=== PATIENT | male | born 1930 | race Caucasian/White ===

== ENCOUNTER 2020-09-17 12:26 | Inpatient (IN) ==
[2020-09-17] MEDS ORDERED: Ondansetron 4 MG/2 ML VIAL ONE (12:50)
[2020-09-17] MEDS: 0.9 % Sodium Chloride 1,000 ML IVC SCH ×3 (13:04→21:46)
[2020-09-17] MEDS: Norepinephrine 4 MG/254 ML IV.SOLN IVC SCH ×2 (13:04→21:25)
[2020-09-17] MEDS ORDERED: Acetaminophen 650 MG RECTAL SUPP RC ONE (13:05)
[2020-09-17] MEDS ORDERED: 0.9 % Sodium Chloride 1,000 ML IVC ONE ×3 (13:17→15:18)
[2020-09-17] MEDS ORDERED: Piperacillin/Tazobactam 3.375 GM in Water for inj. (sterile) 20 ML IVP ONE (13:18)
[2020-09-17] MEDS ORDERED: Piperacillin/Tazobactam 3.375 GM in 0.9 % Sodium Chloride Mini Bag 100 ML IVPB ONE (13:19)
[2020-09-17 13:28] LABS: INR 1.3; Prothrombin Time 14.4 Seconds (9.4-12.1)
[2020-09-17 13:30] LABS: Activated Partial Thrombo Time 29.5 Seconds (26.0-36.0)
[2020-09-17 13:48] LABS: Albumin 3.1 g/dL (3.5-5.7); Albumin/Globulin Ratio 1.3 (1.1-2.2); Bilirubin,Direct 0.2 mg/dL (0.0-0.2); Bilirubin,Indirect 0.5 mg/dL (0.0-1.0); Bilirubin,Total 0.7 mg/dL (0.3-1.0); Calcium 8.3 mg/dL (8.6-10.3); Globulin 2.4 g/dL (2.4-3.5); Magnesium 1.7 mg/dL (1.6-2.6); Phosphorous 2.1 mg/dL (2.7-4.5); Potassium 3.6 mEq/L (3.5-5.1); Total Protein 5.5 g/dL (6.4-8.9); Troponin I 0.03 ng/mL (< 0.04)
[2020-09-17 13:58] LABS: Thyroid Stimulating Hormone 20.674 mcIU/mL (0.340-5.600)
[2020-09-17 14:08] LABS: Bilirubin,Urine Negative (Negative); Blood,Urine Large (Negative); Clarity,Urine Turbid (Clear); Color,Urine Light-Red (Yellow); Glucose,Urine (UA) Normal (Normal); Ketones,Urine Negative (Negative); Leukocyte Esterase,Urine Large (Negative); Nitrite,Urine Negative (Negative); PH,Urine 6.5 pH Units (5.0-8.0); Protein,Urine 100 mg/dL (Neg-Trace); Specific Gravity,Urine 1.006 (1.010-1.025); Urobilinogen,Urine Normal (Normal)
[2020-09-17 14:23] LABS: Amorphous Sediment,Urine Many per hpf (None-Few); Bacteria,Urine Many per hpf (None-Few); RBC,Urine TNTC per hpf (0-3); Renal Epithelial Cells,Urine Few per hpf (None-Few); WBC,Urine TNTC per hpf (0-3)
[2020-09-17] MEDS ORDERED: Metoclopramide 10 MG/2 ML VIAL IVP ONE (14:36)
[2020-09-17 14:45] LABS: Hematocrit 28.3 % (37.5-50.1); Mean Corpuscular Volume 95.6 fL (83.0-100.0); Red Blood Count 2.96 M/mcL (4.19-5.50)
[2020-09-17 14:47] LABS: Hemoglobin 8.8 g/dL (12.9-16.9); Immature Platelets 3.4 % (1.1-6.1); Mean Corpuscular HGB Conc 31.1 g/dL (31.6-35.5); Mean Corpuscular Hemoglobin 29.7 pg (28.0-33.3); Mean Platelet Volume 9.9 fL (9.4-12.4); Platelet Count 100 K/mcL (140-400); Red Cell Distribution Width 13.4 % (11.5-14.5); White Blood Count 11.8 K/mcL (4.3-11.1)
[2020-09-17 15:11] LABS: Neutrophils # 11.8 K/mcL (1.6-8.9); Toxic Vacuolation Present (Not Present)
[2020-09-17 15:12] LABS: Anisocytosis 1+ (Not Present); Large Platelets Present (Not Present); Toxic Granulation Present (Not Present)
[2020-09-17 15:13] LABS: Platelet Estimate Slight Decrease (Normal)
[2020-09-17] MEDS ORDERED: Naloxone 0.4 MG/ML INJ IVP PRN (18:34)
[2020-09-17] MEDS ORDERED: Vancomycin (wt based) 1,000 MG VIAL IVPB SCH (19:00)
[2020-09-17] MEDS: Vasopressin 40 UNIT in D5% in Water 100 ML IVC SCH (20:09)
[2020-09-17] MEDS: Acetaminophen 325 MG TABLET PO PRN (20:09)
[2020-09-17] MEDS: MetroNIDAZOLE 500 MG/100 ML 500 MG/100 ML BAG IVPB SCH (21:07)
[2020-09-17] MEDS ORDERED: Albumin 25% 25gram/100mL 25 GM/100 ML IV.SOLN IVPB ONE (21:28)
[2020-09-17] MEDS ORDERED: Cefepime HCl 2,000 MG in Water for inj. (sterile) 20 ML IVP SCH (22:00)
[2020-09-17] MEDS: Hydrocortisone Sodium Succ 100 MG/2 ML VIAL IVP SCH (23:33)
[2020-09-17] MEDS ORDERED: Norepinephrine 4 MG/254 ML IV.SOLN IVC SCH (23:45)
[2020-09-17] MEDS ORDERED: D5% in Water 1,000 ML IVC SCH (23:45)
[2020-09-17] MEDS: Norepinephrine 8 MG in 0.9 % Sodium Chloride 250 ML IVC SCH (23:54)
[2020-09-18] MEDS: Phenylephrine 10 MG in 0.9 % Sodium Chloride 250 ML IVC SCH ×2 (02:03→12:55)
[2020-09-18 04:09] LABS: Hemoglobin 7.7 g/dL (12.9-16.9)
[2020-09-18 04:11] LABS: Hematocrit 24.2 % (37.5-50.1); Mean Corpuscular HGB Conc 31.8 g/dL (31.6-35.5); Mean Corpuscular Hemoglobin 30.4 pg (28.0-33.3); Mean Corpuscular Volume 95.7 fL (83.0-100.0); Mean Platelet Volume 10.9 fL (9.4-12.4); Red Blood Count 2.53 M/mcL (4.19-5.50); Red Cell Distribution Width 13.8 % (11.5-14.5)
[2020-09-18 04:16] LABS: Platelet Count 77 K/mcL (140-400)
[2020-09-18 04:21] LABS: Calcium 7.2 mg/dL (8.6-10.3); Magnesium 1.3 mg/dL (1.6-2.6); Phosphorous 2.9 mg/dL (2.7-4.5); Potassium 3.8 mEq/L (3.5-5.1)
[2020-09-18] MEDS: Norepinephrine 8 MG in 0.9 % Sodium Chloride 250 ML IVC SCH ×3 (04:30→17:26)
[2020-09-18] MEDS: *HR* Heparin 5,000 UNIT/ML VIAL SQ SCH ×2 (05:16→17:30)
[2020-09-18] MEDS: Hydrocortisone Sodium Succ 100 MG/2 ML VIAL IVP SCH ×4 (05:16→23:27)
[2020-09-18] MEDS: MetroNIDAZOLE 500 MG/100 ML 500 MG/100 ML BAG IVPB SCH ×3 (05:16→19:48)
[2020-09-18 05:39] LABS: Lymphocytes # 1.2 K/mcL (0.6-4.6); Neutrophils # 29.1 K/mcL (1.6-8.9); Platelet Estimate Decreased (Normal); Toxic Granulation Present (Not Present); Toxic Vacuolation Present (Not Present)
[2020-09-18] MEDS: Potassium Chloride 40 MEQ/200 ML BAG IVPB PRN (06:15)
[2020-09-18] MEDS: 0.9 % Sodium Chloride 1,000 ML IVC SCH (08:14)
[2020-09-18] MEDS: Acetaminophen 325 MG TABLET PO PRN (08:25)
[2020-09-18 08:37] LABS: Acinetobacter baumannii by PCR Not Detected (Not Detect); Candida albicans by PCR Not Detected (Not Detect); Candida glabrata by PCR Not Detected (Not Detect); Candida krusei by PCR Not Detected (Not Detect); Candida parapsilosis by PCR Not Detected (Not Detect); Candida tropicalis by PCR Not Detected (Not Detect); Enterobacter cloacae Cmplx PCR Not Detected (Not Detect); Enterobacteriaceae by PCR Not Detected (Not Detect); Enterococcus by PCR Not Detected (Not Detect); Escherichia coli by PCR Not Detected (Not Detect); Klebsiella oxytoca by PCR Not Detected (Not Detect); Klebsiella pneumoniae by PCR Not Detected (Not Detect); Proteus by PCR Not Detected (Not Detect); Pseudomonas aeruginosa by PCR DETECTED (Not Detect); Serratia marcescens by PCR Not Detected (Not Detect); Staphylococcus aureus by PCR Not Detected (Not Detect); Staphylococcus by PCR Not Detected (Not Detect); Streptococcus agalactiae(B)PCR Not Detected (Not Detect); Streptococcus by PCR Not Detected (Not Detect); Streptococcus pneumoniae PCR Not Detected (Not Detect); Streptococcus pyogenes (A) PCR Not Detected (Not Detect); blaKPC Carbapenem-Resist Gene Not Detected (Not Detect); mecA Methicillin-Resist Gene Not Detected (Not Detect); vanA/B Vancomycin-Resist Genes Not Detected (Not Detect)
[2020-09-18] MEDS ORDERED: 0.9 % Sodium Chloride 1,000 ML IVC ONE (13:23)
[2020-09-18] MEDS ORDERED: Sodium Bicarbonate 150 MEQ in D5% in Water 1,000 ML IVC SCH (14:15)
[2020-09-18] MEDS: Albumin Human 5% 12.5 GM/250 ML IV.SOLN IVPB SCH ×2 (14:19→17:27)
[2020-09-18] MEDS: Cefepime HCl 1,000 MG in Water for inj. (sterile) 10 ML IVP SCH ×2 (14:20→23:26)
[2020-09-18] MEDS: Vasopressin 40 UNIT in D5% in Water 100 ML IVC SCH ×2 (15:42→19:40)
[2020-09-18] MEDS ORDERED: Albumin Human 5% 12.5 GM/250 ML IV.SOLN ONE (17:21)
[2020-09-18] MEDS: Phenylephrine 50 MG in 0.9 % Sodium Chloride 250 ML IVC SCH (19:40)
[2020-09-18] MEDS ORDERED: Hydrocortisone Sodium Succ 100 MG/2 ML VIAL IVP SCH (22:00)
[2020-09-19] MEDS: Vasopressin 40 UNIT in D5% in Water 100 ML IVC SCH ×2 (00:44→19:26)
[2020-09-19] MEDS: Norepinephrine 8 MG in 0.9 % Sodium Chloride 250 ML IVC SCH (01:51)
[2020-09-19 04:12] LABS: VBG Ionized Calcium 0.99 mmol/L (1.15-1.35)
[2020-09-19 04:28] LABS: Hemoglobin 6.7 g/dL (12.9-16.9)
[2020-09-19 04:30] LABS: Hematocrit 20.1 % (37.5-50.1); Mean Corpuscular HGB Conc 33.3 g/dL (31.6-35.5); Mean Corpuscular Hemoglobin 30.3 pg (28.0-33.3); Mean Platelet Volume 11.3 fL (9.4-12.4); Red Blood Count 2.21 M/mcL (4.19-5.50); White Blood Count 23.1 K/mcL (4.3-11.1)
[2020-09-19 04:54] LABS: Platelet Count 47 K/mcL (140-400)
[2020-09-19 04:59] LABS: Ferritin 1078 ng/mL (20-250); Iron < 10 mcg/dL (65-175); Transferrin 92 mg/dL (203-362)
[2020-09-19 05:04] LABS: Folate 4.8 ng/mL (3.0-16.0)
[2020-09-19 05:06] LABS: Calcium 6.8 mg/dL (8.6-10.3); Magnesium 1.8 mg/dL (1.6-2.6); Phosphorous 3.2 mg/dL (2.7-4.5); Potassium 4.6 mEq/L (3.5-5.1)
[2020-09-19 05:12] LABS: Vitamin B12 > 1500 pg/mL (250-1100)
[2020-09-19] MEDS: MetroNIDAZOLE 500 MG/100 ML 500 MG/100 ML BAG IVPB SCH ×3 (05:15→20:08)
[2020-09-19] MEDS: Hydrocortisone Sodium Succ 100 MG/2 ML VIAL IVP SCH ×4 (05:16→23:02)
[2020-09-19] MEDS: *HR* Heparin 5,000 UNIT/ML VIAL SQ SCH (05:16)
[2020-09-19 05:45] LABS: Monocytes # 1.9 K/mcL (0.0-1.3)
[2020-09-19 05:46] LABS: Large Platelets Present (Not Present); Platelet Estimate Marked Decrease (Normal); Toxic Vacuolation Present (Not Present)
[2020-09-19] MEDS: Calcium Gluconate 1gm/50mL 1 GM/50 ML BAG IVPB PRN ×2 (05:50→14:42)
[2020-09-19 06:07] LABS: Red Cell Distribution Width 14.2 % (11.5-14.5)
[2020-09-19 06:09] LABS: Hematocrit 21.4 % (37.5-50.1); Hemoglobin 6.9 g/dL (12.9-16.9); Immature Platelets 7.3 % (1.1-6.1); Mean Corpuscular HGB Conc 32.2 g/dL (31.6-35.5); Mean Corpuscular Hemoglobin 29.2 pg (28.0-33.3); Mean Corpuscular Volume 90.7 fL (83.0-100.0); Red Blood Count 2.36 M/mcL (4.19-5.50); White Blood Count 26.2 K/mcL (4.3-11.1)
[2020-09-19 06:11] LABS: Platelet Count 46 K/mcL (140-400)
[2020-09-19 06:44] LABS: Neutrophils # 23.6 K/mcL (1.6-8.9)
[2020-09-19 06:45] LABS: Anisocytosis 1+ (Not Present); Platelet Estimate Marked Decrease (Normal); Poikilocytosis 1+ (Not Present); Toxic Vacuolation Present (Not Present)
[2020-09-19] MEDS ORDERED: 0.9 % Sodium Chloride 250 ML IVC SCH (06:45)
[2020-09-19] MEDS ORDERED: Haloperidol Lactate 5 MG/ML VIAL IM ONE (07:40)
[2020-09-19] MEDS ORDERED: Haloperidol Lactate 5 MG/ML VIAL IVP ONE (08:00)
[2020-09-19] MEDS: Cefepime HCl 1,000 MG in Water for inj. (sterile) 10 ML IVP SCH ×2 (10:38→22:46)
[2020-09-19 13:04] LABS: VBG Ionized Calcium 1.04 mmol/L (1.15-1.35)
[2020-09-19] MEDS: Albumin Human 5% 12.5 GM/250 ML IV.SOLN IVPB SCH (14:31)
[2020-09-19] MEDS: Calcium Gluconate 1gm/50mL 1 GM/50 ML BAG IVPB SCH ×2 (15:52→17:05)
[2020-09-19] MEDS ORDERED: Haloperidol Lactate 5 MG/ML VIAL IM PRN (16:33)
[2020-09-19] MEDS: Acetaminophen 325 MG TABLET PO PRN (16:57)
[2020-09-19] MEDS: Phenylephrine 50 MG in 0.9 % Sodium Chloride 250 ML IVC SCH (19:26)
[2020-09-19] MEDS: Dexmedetomidine HCl 400 MCG/100 ML MLS IVC SCH (20:08)
[2020-09-20] MEDS: Norepinephrine 8 MG in 0.9 % Sodium Chloride 250 ML IVC SCH (03:30)
[2020-09-20 04:00] LABS: Lymphocytes % 1.1 %
[2020-09-20 04:02] LABS: Basophils % 0.2 %; Hematocrit 28.5 % (37.5-50.1); Hemoglobin 9.6 g/dL (12.9-16.9); Immature Granulocytes % 0.3 % (0-4); Immature Platelets 11.4 % (1.1-6.1); Lymphocytes # 0.3 K/mcL (0.6-4.6); Mean Corpuscular HGB Conc 33.7 g/dL (31.6-35.5); Mean Corpuscular Hemoglobin 29.9 pg (28.0-33.3); Mean Corpuscular Volume 88.8 fL (83.0-100.0); Mean Platelet Volume 12.9 fL (9.4-12.4); Monocytes # 0.4 K/mcL (0.0-1.3); Monocytes % 1.6 %; Red Blood Count 3.21 M/mcL (4.19-5.50); Red Cell Distribution Width 14.4 % (11.5-14.5); Segmented Neutrophils % 96.8 %; White Blood Count 24.4 K/mcL (4.3-11.1)
[2020-09-20 04:15] LABS: Calcium 7.2 mg/dL (8.6-10.3); Potassium 4.2 mEq/L (3.5-5.1)
[2020-09-20 04:16] LABS: Magnesium 2.3 mg/dL (1.6-2.6); Phosphorous 3.9 mg/dL (2.7-4.5)
[2020-09-20 04:16] LABS: VBG Ionized Calcium 1.08 mmol/L (1.15-1.35)
[2020-09-20 04:28] LABS: Basophils # 0.1 K/mcL (0.0-0.2); Neutrophils # 23.6 K/mcL (1.6-8.9); Platelet Count 35 K/mcL (140-400)
[2020-09-20 04:29] LABS: Platelet Estimate Decreased (Normal)
[2020-09-20] MEDS: MetroNIDAZOLE 500 MG/100 ML 500 MG/100 ML BAG IVPB SCH ×3 (04:53→21:18)
[2020-09-20] MEDS: Calcium Gluconate 1gm/50mL 1 GM/50 ML BAG IVPB PRN (04:56)
[2020-09-20] MEDS: Hydrocortisone Sodium Succ 100 MG/2 ML VIAL IVP SCH ×3 (05:01→17:58)
[2020-09-20] MEDS: Levothyroxine 25 MCG TABLET PO SCH (06:00)
[2020-09-20 10:46] LABS: VBG Ionized Calcium 1.12 mmol/L (1.15-1.35)
[2020-09-20] MEDS: Cefepime HCl 1,000 MG in Water for inj. (sterile) 10 ML IVP SCH ×2 (11:05→23:10)
[2020-09-20] MEDS: Ringers Solution, Lactated 1,000 ML IVC SCH (17:59)
[2020-09-20] MEDS: Vasopressin 40 UNIT in D5% in Water 100 ML IVC SCH (20:50)
[2020-09-20] MEDS: Phenylephrine 50 MG in 0.9 % Sodium Chloride 250 ML IVC SCH (20:50)
[2020-09-21 04:01] LABS: VBG Ionized Calcium 1.13 mmol/L (1.15-1.35)
[2020-09-21 04:02] LABS: Mean Platelet Volume 12.9 fL (9.4-12.4); Red Cell Distribution Width 14.9 % (11.5-14.5)
[2020-09-21 04:04] LABS: Hematocrit 30.1 % (37.5-50.1); Hemoglobin 10.1 g/dL (12.9-16.9); Immature Platelets 8.7 % (1.1-6.1); Mean Corpuscular HGB Conc 33.6 g/dL (31.6-35.5); Mean Corpuscular Hemoglobin 30.3 pg (28.0-33.3); Mean Corpuscular Volume 90.4 fL (83.0-100.0); Red Blood Count 3.33 M/mcL (4.19-5.50); White Blood Count 22.2 K/mcL (4.3-11.1)
[2020-09-21 04:14] LABS: Albumin 2.3 g/dL (3.5-5.7); Albumin/Globulin Ratio 1.4 (1.1-2.2); Bilirubin,Total 0.6 mg/dL (0.3-1.0); Calcium 7.5 mg/dL (8.6-10.3); Globulin 1.7 g/dL (2.4-3.5); Magnesium 2.4 mg/dL (1.6-2.6); Phosphorous 4.4 mg/dL (2.7-4.5); Potassium 4.1 mEq/L (3.5-5.1)
[2020-09-21 04:55] LABS: Platelet Count 29 K/mcL (140-400)
[2020-09-21 05:04] LABS: Lymphocytes # 0.9 K/mcL (0.6-4.6); Monocytes # 0.4 K/mcL (0.0-1.3); Neutrophils # 20.9 K/mcL (1.6-8.9)
[2020-09-21 05:05] LABS: Burr Cells 1+ (Not Present); Platelet Estimate Marked Decrease (Normal)
[2020-09-21] MEDS: MetroNIDAZOLE 500 MG/100 ML 500 MG/100 ML BAG IVPB SCH ×3 (05:05→21:16)
[2020-09-21] MEDS: Hydrocortisone Sodium Succ 100 MG/2 ML VIAL IVP SCH ×2 (06:17→17:55)
[2020-09-21] MEDS: Levothyroxine 25 MCG TABLET PO SCH ×2 (06:17→07:00)
[2020-09-21] MEDS: Ringers Solution, Lactated 1,000 ML IVC SCH (07:20)
[2020-09-21] MEDS ORDERED: Acetaminophen 650 MG RECTAL SUPP RC PRN (08:39)
[2020-09-21] MEDS: Dexmedetomidine HCl 400 MCG/100 ML MLS IVC SCH (08:41)
[2020-09-21] MEDS: Cefepime HCl 1,000 MG in Water for inj. (sterile) 10 ML IVP SCH ×2 (13:59→23:18)
[2020-09-21] MEDS: Phenylephrine 50 MG in 0.9 % Sodium Chloride 250 ML IVC SCH (17:29)
[2020-09-21] MEDS: Vasopressin 40 UNIT in D5% in Water 100 ML IVC SCH (17:29)
[2020-09-21] MEDS: D5% in Lactated Ringers 1,000 ML IVC SCH (17:51)
[2020-09-21 18:57] LABS: Basophils % 0.2 %; Mean Corpuscular Hemoglobin 29.8 pg (28.0-33.3)
[2020-09-21 18:59] LABS: Eosinophils % 0.1 %; Hemoglobin 10.9 g/dL (12.9-16.9); Immature Granulocytes % 0.9 % (0-4); Immature Platelets 10.8 % (1.1-6.1); Lymphocytes # 0.6 K/mcL (0.6-4.6); Lymphocytes % 2.9 %; Mean Corpuscular Volume 90.2 fL (83.0-100.0); Mean Platelet Volume 13.4 fL (9.4-12.4); Monocytes # 0.9 K/mcL (0.0-1.3); Monocytes % 4.2 %; Nucleated Red Blood Cells 0.2 /100 WBC (0); Red Blood Count 3.66 M/mcL (4.19-5.50); Red Cell Distribution Width 14.8 % (11.5-14.5); Segmented Neutrophils % 91.7 %; White Blood Count 22.2 K/mcL (4.3-11.1)
[2020-09-21 19:00] LABS: Neutrophils # 20.4 K/mcL (1.6-8.9)
[2020-09-21 19:02] LABS: Platelet Count 25 K/mcL (140-400)
[2020-09-21 19:10] LABS: Albumin 2.6 g/dL (3.5-5.7); Albumin/Globulin Ratio 1.4 (1.1-2.2); Bilirubin,Direct 0.2 mg/dL (0.0-0.2); Bilirubin,Indirect 0.4 mg/dL (0.0-1.0); Bilirubin,Total 0.6 mg/dL (0.3-1.0); Calcium 7.8 mg/dL (8.6-10.3); Globulin 1.8 g/dL (2.4-3.5); Total Protein 4.4 g/dL (6.4-8.9)
[2020-09-21] MEDS ORDERED: Ondansetron 4 MG/2 ML VIAL IVP PRN (21:42)
[2020-09-22] MEDS: Dexmedetomidine HCl 400 MCG/100 ML MLS IVC SCH ×2 (02:19→19:39)
[2020-09-22] MEDS: Vasopressin 40 UNIT in D5% in Water 100 ML IVC SCH ×2 (02:19→14:35)
[2020-09-22] MEDS: Norepinephrine 8 MG in 0.9 % Sodium Chloride 250 ML IVC SCH ×2 (02:20→22:11)
[2020-09-22] MEDS: D5% in Lactated Ringers 1,000 ML IVC SCH (03:30)
[2020-09-22 04:28] LABS: Eosinophils % 0.1 %; Hemoglobin 10.3 g/dL (12.9-16.9); Nucleated Red Blood Cells 0.2 /100 WBC (0); Red Cell Distribution Width 14.8 % (11.5-14.5)
[2020-09-22 04:30] LABS: Basophils # 0.1 K/mcL (0.0-0.2); Basophils % 0.4 %; Hematocrit 31.3 % (37.5-50.1); Immature Granulocytes % 1.8 % (0-4); Immature Platelets 11.2 % (1.1-6.1); Lymphocytes # 0.6 K/mcL (0.6-4.6); Lymphocytes % 3.9 %; Mean Corpuscular HGB Conc 32.9 g/dL (31.6-35.5); Mean Corpuscular Hemoglobin 29.8 pg (28.0-33.3); Mean Corpuscular Volume 90.5 fL (83.0-100.0); Mean Platelet Volume 13.1 fL (9.4-12.4); Monocytes % 5.8 %; Neutrophils # 14.4 K/mcL (1.6-8.9); Red Blood Count 3.46 M/mcL (4.19-5.50); White Blood Count 16.4 K/mcL (4.3-11.1)
[2020-09-22 04:32] LABS: Platelet Count 24 K/mcL (140-400)
[2020-09-22 04:33] LABS: VBG Ionized Calcium 1.15 mmol/L (1.15-1.35)
[2020-09-22 04:48] LABS: Albumin 2.5 g/dL (3.5-5.7); Albumin/Globulin Ratio 1.4 (1.1-2.2); Bilirubin,Direct 0.2 mg/dL (0.0-0.2); Bilirubin,Indirect 0.5 mg/dL (0.0-1.0); Bilirubin,Total 0.7 mg/dL (0.3-1.0); Calcium 7.7 mg/dL (8.6-10.3); Globulin 1.8 g/dL (2.4-3.5); Magnesium 2.4 mg/dL (1.6-2.6); Phosphorous 3.2 mg/dL (2.7-4.5); Potassium 3.6 mEq/L (3.5-5.1); Total Protein 4.3 g/dL (6.4-8.9)
[2020-09-22] MEDS: MetroNIDAZOLE 500 MG/100 ML 500 MG/100 ML BAG IVPB SCH ×3 (05:19→20:29)
[2020-09-22] MEDS: Potassium Chloride 40 MEQ/200 ML BAG IVPB PRN ×2 (06:01→08:45)
[2020-09-22] MEDS: Hydrocortisone Sodium Succ 100 MG/2 ML VIAL IVP SCH (06:02)
[2020-09-22] MEDS ORDERED: D5% in Water 1,000 ML IVC SCH (07:30)
[2020-09-22] MEDS: Levothyroxine 25 MCG TABLET PO SCH (11:23)
[2020-09-22] MEDS: Cefepime HCl 1,000 MG in Water for inj. (sterile) 10 ML IVP SCH ×2 (11:45→22:25)
[2020-09-22 12:32] LABS: Calcium 7.7 mg/dL (8.6-10.3); Potassium 3.9 mEq/L (3.5-5.1)
[2020-09-22] MEDS: Phenylephrine 50 MG in 0.9 % Sodium Chloride 250 ML IVC SCH (14:35)
[2020-09-22] MEDS: D5% in Water 1,000 ML IVC SCH ×2 (15:34→18:19)
[2020-09-23 01:16] LABS: Calcium 7.3 mg/dL (8.6-10.3); Potassium 3.4 mEq/L (3.5-5.1)
[2020-09-23] MEDS: D5% in Water 1,000 ML IVC SCH ×4 (03:36→20:47)
[2020-09-23] MEDS: Vasopressin 40 UNIT in D5% in Water 100 ML IVC SCH (03:37)
[2020-09-23 04:05] LABS: VBG Ionized Calcium 1.14 mmol/L (1.15-1.35)
[2020-09-23 04:16] LABS: Calcium 7.4 mg/dL (8.6-10.3); Magnesium 1.9 mg/dL (1.6-2.6); Potassium 3.3 mEq/L (3.5-5.1)
[2020-09-23] MEDS: MetroNIDAZOLE 500 MG/100 ML 500 MG/100 ML BAG IVPB SCH (04:38)
[2020-09-23] MEDS: Levothyroxine 25 MCG TABLET PO SCH (04:39)
[2020-09-23 04:46] LABS: Basophils % 0.3 %; Eosinophils # 0.3 K/mcL (0.0-0.6); Eosinophils % 2.4 %; Hematocrit 29.6 % (37.5-50.1); Hemoglobin 9.8 g/dL (12.9-16.9); Immature Granulocytes % 4.2 % (0-4); Immature Platelets 13.9 % (1.1-6.1); Lymphocytes # 0.8 K/mcL (0.6-4.6); Lymphocytes % 7.1 %; Mean Corpuscular HGB Conc 33.1 g/dL (31.6-35.5); Mean Corpuscular Hemoglobin 29.8 pg (28.0-33.3); Mean Platelet Volume 12.2 fL (9.4-12.4); Monocytes # 0.9 K/mcL (0.0-1.3); Monocytes % 7.7 %; Nucleated Red Blood Cells 0.4 /100 WBC (0); Red Blood Count 3.29 M/mcL (4.19-5.50); Red Cell Distribution Width 14.6 % (11.5-14.5); Segmented Neutrophils % 78.3 %; White Blood Count 11.3 K/mcL (4.3-11.1)
[2020-09-23 04:48] LABS: Neutrophils # 8.9 K/mcL (1.6-8.9)
[2020-09-23 04:50] LABS: Platelet Count 25 K/mcL (140-400)
[2020-09-23] MEDS: Potassium Chloride 40 MEQ/200 ML BAG IVPB PRN (05:00)
[2020-09-23] MEDS ORDERED: Potassium Phosphate 44 MEQ in 0.9 % Sodium Chloride 250 ML IVPB PRN ×2 (05:02→14:35)
[2020-09-23 10:03] LABS: ABG Base Excess -2 mEq/L (-2 to 3); ABG HCO3 28 mEq/L (21-27); ABG Oxygen Saturation 89 % (95-98); ABG PCO2 70 mmHg (35-45); ABG PH 7.21 pH Units (7.32-7.45); ABG PO2 70 mmHg (85-104); ABG TCO2 30 mEq/L (20-26); Blood Gas VT 420 cc
[2020-09-23] MEDS: Cefepime HCl 1,000 MG in Water for inj. (sterile) 10 ML IVP SCH ×2 (10:52→22:33)
[2020-09-23 11:18] LABS: Basophils % 0.3 %; Hemoglobin 9.6 g/dL (12.9-16.9); Nucleated Red Blood Cells 0.2 /100 WBC (0); Red Cell Distribution Width 14.7 % (11.5-14.5)
[2020-09-23 11:20] LABS: Eosinophils # 0.4 K/mcL (0.0-0.6); Eosinophils % 3.4 %; Hematocrit 29.7 % (37.5-50.1); Immature Platelets 13.3 % (1.1-6.1); Lymphocytes # 0.8 K/mcL (0.6-4.6); Lymphocytes % 6.8 %; Mean Corpuscular HGB Conc 32.3 g/dL (31.6-35.5); Mean Corpuscular Hemoglobin 29.3 pg (28.0-33.3); Mean Corpuscular Volume 90.5 fL (83.0-100.0); Monocytes # 0.8 K/mcL (0.0-1.3); Monocytes % 6.7 %; Red Blood Count 3.28 M/mcL (4.19-5.50); Segmented Neutrophils % 79.8 %; White Blood Count 11.7 K/mcL (4.3-11.1)
[2020-09-23 11:24] LABS: Platelet Count 25 K/mcL (140-400)
[2020-09-23 11:25] LABS: Neutrophils # 9.3 K/mcL (1.6-8.9)
[2020-09-23 11:45] LABS: Calcium 7.2 mg/dL (8.6-10.3); Potassium 4.3 mEq/L (3.5-5.1)
[2020-09-23] MEDS ORDERED: Naloxone 0.4 MG/ML INJ IVP PRN (14:35)
[2020-09-23] MEDS ORDERED: Potassium Chloride 40 MEQ/200 ML BAG IVPB PRN (14:35)
[2020-09-23] MEDS ORDERED: Calcium Gluconate 1gm/50mL 1 GM/50 ML BAG IVPB PRN (14:35)
[2020-09-23] MEDS ORDERED: Acetaminophen 650 MG RECTAL SUPP RC PRN (14:35)
[2020-09-23] MEDS ORDERED: Haloperidol Lactate 5 MG/ML VIAL IM PRN (14:35)
[2020-09-23] MEDS ORDERED: 0.9 % Sodium Chloride 250 ML IVC SCH (14:35)
[2020-09-23] MEDS ORDERED: Ondansetron 4 MG/2 ML VIAL IVP PRN (14:35)
[2020-09-23] MEDS ORDERED: Acetaminophen 325 MG TABLET PO PRN (14:35)
[2020-09-23] MEDS: Mirtazapine 15 MG TABLET PO SCH (20:45)
[2020-09-24] MEDS: Levothyroxine 25 MCG TABLET PO SCH (05:33)
[2020-09-24] MEDS: D5% in Water 1,000 ML IVC SCH ×3 (05:34→22:10)
[2020-09-24] MEDS: Multivit/Ca/Min/Fe/FA 1 TAB TABLET PO SCH (07:53)
[2020-09-24] MEDS: Cefepime HCl 1,000 MG in Water for inj. (sterile) 10 ML IVP SCH (10:57)
[2020-09-24 11:25] LABS: Basophils % 0.2 %
[2020-09-24 11:27] LABS: Eosinophils # 0.4 K/mcL (0.0-0.6); Eosinophils % 3.1 %; Hemoglobin 9.8 g/dL (12.9-16.9); Immature Granulocytes % 2.9 % (0-4); Immature Platelets 15.6 % (1.1-6.1); Lymphocytes # 0.5 K/mcL (0.6-4.6); Lymphocytes % 3.6 %; Mean Corpuscular HGB Conc 32.7 g/dL (31.6-35.5); Mean Corpuscular Hemoglobin 29.6 pg (28.0-33.3); Mean Corpuscular Volume 90.6 fL (83.0-100.0); Mean Platelet Volume 12.8 fL (9.4-12.4); Monocytes % 4.6 %; Red Blood Count 3.31 M/mcL (4.19-5.50); Red Cell Distribution Width 14.3 % (11.5-14.5); Segmented Neutrophils % 85.6 %; White Blood Count 14.1 K/mcL (4.3-11.1)
[2020-09-24 11:29] LABS: Monocytes # 0.7 K/mcL (0.0-1.3); Neutrophils # 12.1 K/mcL (1.6-8.9)
[2020-09-24 11:33] LABS: Platelet Count 29 K/mcL (140-400)
[2020-09-24 11:46] LABS: Magnesium 1.7 mg/dL (1.6-2.6); Phosphorous 2.9 mg/dL (2.7-4.5); Potassium 3.7 mEq/L (3.5-5.1)
[2020-09-24] MEDS: Mirtazapine 15 MG TABLET PO SCH (20:45)
[2020-09-24] MEDS: Cefepime HCl 2,000 MG in Water for inj. (sterile) 20 ML IVP SCH (22:50)
[2020-09-25] MEDS: Levothyroxine 25 MCG TABLET PO SCH (05:44)
[2020-09-25 06:24] LABS: Hemoglobin 9.8 g/dL (12.9-16.9); Immature Granulocytes % 3.7 % (0-4); Mean Corpuscular Volume 89.8 fL (83.0-100.0)
[2020-09-25 06:26] LABS: Basophils % 0.1 %; Eosinophils # 0.5 K/mcL (0.0-0.6); Eosinophils % 3.1 %; Hematocrit 29.8 % (37.5-50.1); Immature Platelets 13.2 % (1.1-6.1); Lymphocytes # 0.6 K/mcL (0.6-4.6); Lymphocytes % 4.1 %; Mean Corpuscular HGB Conc 32.9 g/dL (31.6-35.5); Mean Corpuscular Hemoglobin 29.5 pg (28.0-33.3); Mean Platelet Volume 13.7 fL (9.4-12.4); Monocytes # 0.6 K/mcL (0.0-1.3); Monocytes % 3.9 %; Neutrophils # 12.8 K/mcL (1.6-8.9); Red Blood Count 3.32 M/mcL (4.19-5.50); Red Cell Distribution Width 14.3 % (11.5-14.5); Segmented Neutrophils % 85.1 %
[2020-09-25 06:28] LABS: Platelet Count 36 K/mcL (140-400)
[2020-09-25 06:44] LABS: Calcium 7.1 mg/dL (8.6-10.3); Potassium 3.5 mEq/L (3.5-5.1)
[2020-09-25] MEDS: Multivit/Ca/Min/Fe/FA 1 TAB TABLET PO SCH (10:39)
[2020-09-25] MEDS: Cefepime HCl 2,000 MG in Water for inj. (sterile) 20 ML IVP SCH (10:47)
[2020-09-25] MEDS ORDERED: levoFLOXacin 750 MG/150 ML 750 MG/150 ML BAG IVPB SCH (15:30)
[2020-09-25] MEDS ORDERED: Ipratropium/Albuterol Neb 3 ML IH PRN (17:30)
[2020-09-25] MEDS: Mirtazapine 15 MG TABLET PO SCH (21:33)
[2020-09-26 01:21] LABS: Basophils % 0.3 %; Eosinophils % 1.7 %; Hemoglobin 10.2 g/dL (12.9-16.9)
[2020-09-26 01:23] LABS: Basophils # 0.1 K/mcL (0.0-0.2); Eosinophils # 0.3 K/mcL (0.0-0.6); Hematocrit 31.3 % (37.5-50.1); Immature Granulocytes % 3.2 % (0-4); Immature Platelets 9.8 % (1.1-6.1); Lymphocytes # 0.7 K/mcL (0.6-4.6); Lymphocytes % 4.3 %; Mean Corpuscular HGB Conc 32.6 g/dL (31.6-35.5); Mean Corpuscular Hemoglobin 29.7 pg (28.0-33.3); Mean Corpuscular Volume 91.3 fL (83.0-100.0); Mean Platelet Volume 12.8 fL (9.4-12.4); Monocytes # 0.8 K/mcL (0.0-1.3); Monocytes % 4.9 %; Neutrophils # 13.4 K/mcL (1.6-8.9); Red Blood Count 3.43 M/mcL (4.19-5.50); Red Cell Distribution Width 14.2 % (11.5-14.5); Segmented Neutrophils % 85.6 %; White Blood Count 15.7 K/mcL (4.3-11.1)
[2020-09-26 01:36] LABS: Platelet Count 47 K/mcL (140-400)
[2020-09-26 01:44] LABS: Magnesium 1.6 mg/dL (1.6-2.6); Phosphorous 3.4 mg/dL (2.7-4.5); Potassium 3.9 mEq/L (3.5-5.1)
[2020-09-26] MEDS: Levothyroxine 25 MCG TABLET PO SCH (05:42)
[2020-09-26] MEDS: Finasteride 5 MG TABLET PO SCH (08:17)
[2020-09-26] MEDS: Multivit/Ca/Min/Fe/FA 1 TAB TABLET PO SCH (08:18)
[2020-09-26] MEDS: Cyanocobalamin (B-12) 1,000 MCG TABLET PO SCH (08:18)
[2020-09-26] MEDS ORDERED: D5% in Water 1,000 ML IVC PRN (08:25)
[2020-09-26] MEDS ORDERED: *HR* Dextrose 50 % in Water (Vial) 50 ML VIAL IVP PRN (08:25)
[2020-09-26] MEDS ORDERED: Dextrose Gel 15 GM/37.5 ML TUBE PO PRN ×2 (08:25)
[2020-09-26] MEDS ORDERED: D5% in 0.9% NACL 1,000 ML IVC SCH (08:30)
[2020-09-26 09:06] LABS: ABG Base Excess -5 mEq/L (-2 to 3); ABG HCO3 18 mEq/L (21-27); ABG Oxygen Saturation 96 % (95-98); ABG PCO2 27 mmHg (35-45); ABG PH 7.44 pH Units (7.32-7.45); ABG PO2 76 mmHg (85-104); ABG TCO2 19 mEq/L (20-26)
[2020-09-26] MEDS: Piperacillin/Tazobactam 3.375 GM in 0.9 % Sodium Chloride Mini Bag 100 ML IVPB SCH ×2 (09:58→17:44)
[2020-09-26 10:01] LABS: Albumin 2.4 g/dL (3.5-5.7); Albumin/Globulin Ratio 1.2 (1.1-2.2); Bilirubin,Direct 0.3 mg/dL (0.0-0.2); Bilirubin,Indirect 0.5 mg/dL (0.0-1.0); Bilirubin,Total 0.8 mg/dL (0.3-1.0); Total Protein 4.4 g/dL (6.4-8.9)
[2020-09-26 11:23] LABS: INR 1.6; Prothrombin Time 17.8 Seconds (9.4-12.1)
[2020-09-26] MEDS: Insulin LISPRO 300 UNITS/3 ML VIAL SQ SCH ×2 (12:00→17:49)
[2020-09-27] MEDS: Insulin LISPRO 300 UNITS/3 ML VIAL SQ SCH ×4 (00:24→18:38)
[2020-09-27] MEDS: Mirtazapine 15 MG TABLET PO SCH (00:25)
[2020-09-27] MEDS: Piperacillin/Tazobactam 3.375 GM in 0.9 % Sodium Chloride Mini Bag 100 ML IVPB SCH ×3 (03:12→16:48)
[2020-09-27 05:22] LABS: Hemoglobin 9.3 g/dL (12.9-16.9)
[2020-09-27 05:24] LABS: Basophils % 0.3 %; Eosinophils # 0.4 K/mcL (0.0-0.6); Eosinophils % 3.5 %; Immature Granulocytes % 1.9 % (0-4); Immature Platelets 7.5 % (1.1-6.1); Lymphocytes # 0.6 K/mcL (0.6-4.6); Lymphocytes % 5.2 %; Mean Corpuscular Hemoglobin 29.4 pg (28.0-33.3); Mean Corpuscular Volume 94.9 fL (83.0-100.0); Mean Platelet Volume 12.2 fL (9.4-12.4); Monocytes # 0.8 K/mcL (0.0-1.3); Red Blood Count 3.16 M/mcL (4.19-5.50); Red Cell Distribution Width 14.4 % (11.5-14.5); Segmented Neutrophils % 82.1 %; White Blood Count 10.9 K/mcL (4.3-11.1)
[2020-09-27 05:32] LABS: Platelet Count 51 K/mcL (140-400)
[2020-09-27 05:40] LABS: Calcium 7.2 mg/dL (8.6-10.3); Magnesium 1.6 mg/dL (1.6-2.6); Phosphorous 3.2 mg/dL (2.7-4.5); Potassium 3.7 mEq/L (3.5-5.1)
[2020-09-27] MEDS: Cyanocobalamin (B-12) 1,000 MCG TABLET PO SCH (08:17)
[2020-09-27] MEDS: Multivit/Ca/Min/Fe/FA 1 TAB TABLET PO SCH (08:17)
[2020-09-27] MEDS: Finasteride 5 MG TABLET PO SCH (08:17)
[2020-09-27] MEDS: Levothyroxine Sodium 100 MCG VIAL IVP SCH (09:11)
[2020-09-27] MEDS: Thiamine (B-1) 100 MG in 0.9 % Sodium Chloride 50 ML IVPB SCH (12:48)
[2020-09-27] MEDS ORDERED: D5% in 0.9% NACL 1,000 ML IVC SCH (13:00)
[2020-09-28] MEDS: Insulin LISPRO 300 UNITS/3 ML VIAL SQ SCH ×4 (00:22→18:20)
[2020-09-28] MEDS: Piperacillin/Tazobactam 3.375 GM in 0.9 % Sodium Chloride Mini Bag 100 ML IVPB SCH ×3 (00:23→16:54)
[2020-09-28] MEDS: Mirtazapine 15 MG TABLET PO SCH ×2 (03:47→20:03)
[2020-09-28] MEDS: Multivit/Ca/Min/Fe/FA 1 TAB TABLET PO SCH (10:04)
[2020-09-28] MEDS: Finasteride 5 MG TABLET PO SCH (10:04)
[2020-09-28] MEDS: Cyanocobalamin (B-12) 1,000 MCG TABLET PO SCH (10:04)
[2020-09-28] MEDS: Levothyroxine Sodium 100 MCG VIAL IVP SCH (10:25)
[2020-09-28] MEDS: Pantoprazole 40 MG VIAL IVP SCH (10:25)
[2020-09-28] MEDS: Thiamine (B-1) 100 MG in 0.9 % Sodium Chloride 50 ML IVPB SCH (10:26)
[2020-09-28] MEDS ORDERED: D5% in 0.9% NACL 1,000 ML IVC SCH (14:00)
[2020-09-28 16:37] LABS: Basophils % 0.2 %; Hemoglobin 9.8 g/dL (12.9-16.9)
[2020-09-28 16:38] LABS: Eosinophils # 0.3 K/mcL (0.0-0.6); Eosinophils % 3.1 %; Hematocrit 30.7 % (37.5-50.1); Immature Granulocytes % 1.1 % (0-4); Immature Platelets 6.9 % (1.1-6.1); Lymphocytes # 0.6 K/mcL (0.6-4.6); Lymphocytes % 7.2 %; Mean Corpuscular HGB Conc 31.9 g/dL (31.6-35.5); Mean Corpuscular Hemoglobin 29.9 pg (28.0-33.3); Mean Corpuscular Volume 93.6 fL (83.0-100.0); Mean Platelet Volume 11.7 fL (9.4-12.4); Monocytes # 0.8 K/mcL (0.0-1.3); Monocytes % 8.5 %; Neutrophils # 7.1 K/mcL (1.6-8.9); Platelet Count 64 K/mcL (140-400); Red Blood Count 3.28 M/mcL (4.19-5.50); Red Cell Distribution Width 14.2 % (11.5-14.5); Segmented Neutrophils % 79.9 %; White Blood Count 8.9 K/mcL (4.3-11.1)
[2020-09-28 16:55] LABS: Calcium 7.6 mg/dL (8.6-10.3); Magnesium 1.6 mg/dL (1.6-2.6)
[2020-09-29] MEDS: Piperacillin/Tazobactam 3.375 GM in 0.9 % Sodium Chloride Mini Bag 100 ML IVPB SCH ×3 (00:39→16:24)
[2020-09-29] MEDS: Insulin LISPRO 300 UNITS/3 ML VIAL SQ SCH ×4 (01:02→17:16)
[2020-09-29] MEDS: Finasteride 5 MG TABLET PO SCH (08:04)
[2020-09-29] MEDS: Multivit/Ca/Min/Fe/FA 1 TAB TABLET PO SCH (08:05)
[2020-09-29] MEDS: Cyanocobalamin (B-12) 1,000 MCG TABLET PO SCH (08:05)
[2020-09-29] MEDS: Levothyroxine Sodium 100 MCG VIAL IVP SCH (08:38)
[2020-09-29] MEDS: Pantoprazole 40 MG VIAL IVP SCH (08:40)
[2020-09-29 09:26] LABS: Basophils % 0.3 %; Red Cell Distribution Width 14.4 % (11.5-14.5)
[2020-09-29 09:27] LABS: Eosinophils # 0.2 K/mcL (0.0-0.6); Eosinophils % 3.2 %; Hematocrit 29.4 % (37.5-50.1); Hemoglobin 9.5 g/dL (12.9-16.9); Immature Granulocytes % 1.1 % (0-4); Immature Platelets 6.3 % (1.1-6.1); Lymphocytes # 0.8 K/mcL (0.6-4.6); Mean Corpuscular HGB Conc 32.3 g/dL (31.6-35.5); Mean Corpuscular Hemoglobin 30.6 pg (28.0-33.3); Mean Corpuscular Volume 94.8 fL (83.0-100.0); Mean Platelet Volume 12.1 fL (9.4-12.4); Monocytes # 0.6 K/mcL (0.0-1.3); Monocytes % 7.9 %; Neutrophils # 5.5 K/mcL (1.6-8.9); Segmented Neutrophils % 76.5 %; White Blood Count 7.2 K/mcL (4.3-11.1)
[2020-09-29 09:28] LABS: Platelet Count 63 K/mcL (140-400)
[2020-09-29 09:44] LABS: Calcium 7.6 mg/dL (8.6-10.3); Potassium 4.1 mEq/L (3.5-5.1)
[2020-09-29] MEDS: Thiamine (B-1) 100 MG in 0.9 % Sodium Chloride 50 ML IVPB SCH (10:55)
[2020-09-29] MEDS: Mirtazapine 15 MG TABLET PO SCH (20:08)
[2020-09-29] MEDS: D5% in 0.9% NACL 1,000 ML IVC SCH (23:20)
[2020-09-30] MEDS: Piperacillin/Tazobactam 3.375 GM in 0.9 % Sodium Chloride Mini Bag 100 ML IVPB SCH ×3 (00:36→18:09)
[2020-09-30] MEDS: Insulin LISPRO 300 UNITS/3 ML VIAL SQ SCH ×4 (00:39→18:08)
[2020-09-30] MEDS ORDERED: Haloperidol Lactate 5 MG/ML VIAL IVP ONE (02:18)
[2020-09-30] MEDS: Pantoprazole 40 MG VIAL IVP SCH (08:50)
[2020-09-30] MEDS: Thiamine (B-1) 100 MG in 0.9 % Sodium Chloride 50 ML IVPB SCH (08:51)
[2020-09-30 08:56] LABS: Red Cell Distribution Width 14.4 % (11.5-14.5)
[2020-09-30 08:58] LABS: Basophils # 0.1 K/mcL (0.0-0.2); Basophils % 0.7 %; Eosinophils # 0.2 K/mcL (0.0-0.6); Eosinophils % 3.3 %; Hematocrit 32.7 % (37.5-50.1); Hemoglobin 10.1 g/dL (12.9-16.9); Immature Platelets 5.7 % (1.1-6.1); Lymphocytes # 0.7 K/mcL (0.6-4.6); Lymphocytes % 10.1 %; Mean Corpuscular HGB Conc 30.9 g/dL (31.6-35.5); Mean Corpuscular Hemoglobin 29.4 pg (28.0-33.3); Mean Corpuscular Volume 95.1 fL (83.0-100.0); Mean Platelet Volume 11.9 fL (9.4-12.4); Monocytes # 0.5 K/mcL (0.0-1.3); Monocytes % 7.5 %; Neutrophils # 5.4 K/mcL (1.6-8.9); Red Blood Count 3.44 M/mcL (4.19-5.50); Segmented Neutrophils % 77.4 %
[2020-09-30 08:59] LABS: Platelet Count 65 K/mcL (140-400)
[2020-09-30 09:16] LABS: Calcium 7.7 mg/dL (8.6-10.3); Magnesium 1.6 mg/dL (1.6-2.6); Potassium 3.5 mEq/L (3.5-5.1)
[2020-09-30] MEDS: Finasteride 5 MG TABLET PO SCH (09:22)
[2020-09-30] MEDS: Cyanocobalamin (B-12) 1,000 MCG TABLET PO SCH (09:23)
[2020-09-30] MEDS: Multivit/Ca/Min/Fe/FA 1 TAB TABLET PO SCH (09:23)
[2020-09-30] MEDS ORDERED: E-Z-HD (BARIUM SULF) SUSPENSION PO ONE (11:07)
[2020-09-30] MEDS ORDERED: E-Z-PAQUE (BARIUM SULF) SUSP 1 BOTTLE PO ONE (11:07)
[2020-09-30] MEDS ORDERED: Levothyroxine Sodium 100 MCG VIAL IVP SCH (11:29)
[2020-09-30] MEDS: Levothyroxine Sodium 100 MCG VIAL IVP SCH (11:35)
[2020-09-30] MEDS: Mirtazapine 15 MG TABLET PO SCH (20:06)
[2020-10-01] MEDS: Insulin LISPRO 300 UNITS/3 ML VIAL SQ SCH ×3 (00:53→11:05)
[2020-10-01] MEDS: Piperacillin/Tazobactam 3.375 GM in 0.9 % Sodium Chloride Mini Bag 100 ML IVPB SCH ×2 (00:55→10:34)
[2020-10-01] MEDS: D5% in 0.9% NACL 1,000 ML IVC SCH (00:56)
[2020-10-01] MEDS ORDERED: Levothyroxine 25 MCG TABLET PO SCH (06:30)
[2020-10-01] MEDS: Pantoprazole 40 MG VIAL IVP SCH (09:24)
[2020-10-01] MEDS: Thiamine (B-1) 100 MG in 0.9 % Sodium Chloride 50 ML IVPB SCH (09:24)
[2020-10-01] MEDS: Multivit/Ca/Min/Fe/FA 1 TAB TABLET PO SCH (09:36)
[2020-10-01] MEDS: Cyanocobalamin (B-12) 1,000 MCG TABLET PO SCH (09:36)
[2020-10-01] MEDS: Finasteride 5 MG TABLET PO SCH (09:36)
[2020-10-01 11:06] VITALS: BP 123/70
== END 2020-10-01 14:37 | DRG 698 ==
LOC: EMEROOARM 12:26 → SUATTDRO 17:19 → ICNU 17:19 → 3NENU 09-24 03:20
PROVIDERS: ADMIT Pediatrics; ATTEND Internal Medicine

== ENCOUNTER 2020-10-17 13:01 | Inpatient (IN) ==
[2020-10-17 14:08] LABS: Basophils % 0.1 %; Monocytes % 5.7 %
[2020-10-17 14:10] LABS: Hematocrit 33.3 % (37.5-50.1); Hemoglobin 10.6 g/dL (12.9-16.9); Immature Granulocytes % 0.3 % (0-4); Immature Platelets 1.9 % (1.1-6.1); Lymphocytes # 0.6 K/mcL (0.6-4.6); Lymphocytes % 4.6 %; Mean Corpuscular HGB Conc 31.8 g/dL (31.6-35.5); Mean Corpuscular Hemoglobin 28.8 pg (28.0-33.3); Mean Corpuscular Volume 90.5 fL (83.0-100.0); Mean Platelet Volume 9.6 fL (9.4-12.4); Monocytes # 0.8 K/mcL (0.0-1.3); Red Blood Count 3.68 M/mcL (4.19-5.50); Red Cell Distribution Width 13.4 % (11.5-14.5); Segmented Neutrophils % 89.3 %; White Blood Count 13.2 K/mcL (4.3-11.1)
[2020-10-17 14:11] LABS: Neutrophils # 11.8 K/mcL (1.6-8.9); Platelet Count 65 K/mcL (140-400)
[2020-10-17 14:21] LABS: Calcium 8.2 mg/dL (8.6-10.3); Potassium 4.2 mEq/L (3.5-5.1)
[2020-10-17 14:49] LABS: Albumin/Globulin Ratio 1.1 (1.1-2.2); Bilirubin,Direct 0.2 mg/dL (0.0-0.2); Bilirubin,Indirect 0.5 mg/dL (0.0-1.0); Bilirubin,Total 0.7 mg/dL (0.3-1.0); Globulin 2.8 g/dL (2.4-3.5); Total Protein 5.8 g/dL (6.4-8.9)
[2020-10-17 14:49] LABS: Bacteria,Urine Few per hpf (None-Few); Bilirubin,Urine Negative (Negative); Blood,Urine Small (Negative); Clarity,Urine Turbid (Clear); Color,Urine Yellow (Yellow); Glucose,Urine (UA) Normal (Normal); Hyaline Casts,Urine Many per lpf (None Seen); Ketones,Urine Negative (Negative); Leukocyte Esterase,Urine Large (Negative); Mucus,Urine Few per lpf (None-Few); Nitrite,Urine Negative (Negative); PH,Urine 5.5 pH Units (5.0-8.0); Protein,Urine 50 mg/dL (Neg-Trace); RBC,Urine 15-30 per hpf (0-3); Squamous Epithelial Cell,Urine Few per hpf (None-Few); Urobilinogen,Urine Normal (Normal); WBC,Urine TNTC per hpf (0-3)
[2020-10-17 14:52] LABS: Troponin I 0.1 ng/mL (< 0.04)
[2020-10-17 14:54] LABS: INR 1.2; Prothrombin Time 13.4 Seconds (9.4-12.1)
[2020-10-17 14:56] LABS: Activated Partial Thrombo Time 28.6 Seconds (26.0-36.0)
[2020-10-17] MEDS ORDERED: Cefepime HCl 1,000 MG in 0.9 % Sodium Chloride Mini Bag 100 ML IVPB ONE (15:03)
[2020-10-17] MEDS ORDERED: Naloxone 0.4 MG/ML INJ IVP PRN (18:37)
[2020-10-17] MEDS ORDERED: 0.9 % Sodium Chloride 1,000 ML IVC SCH (18:45)
[2020-10-17 18:58] LABS: Magnesium 1.9 mg/dL (1.6-2.6); Phosphorous 4.6 mg/dL (2.7-4.5)
[2020-10-17] MEDS ORDERED: Azithromycin 500 MG in 0.9 % Sodium Chloride 250 ML IVPB SCH (19:00)
[2020-10-17] MEDS: Aspirin 81 MG TAB.CHEW PO SCH (19:05)
[2020-10-17 19:39] LABS: Adenovirus Not Detected (Not Detect); Bordetella Pertussis Not Detected (Not Detect); Chlamydophila pneumoniae Not Detected (Not Detect); Coronavirus 229E Not Detected (Not Detect); Coronavirus HKU1 Not Detected (Not Detect); Coronavirus NL63 Not Detected (Not Detect); Coronavirus OC43 Not Detected (Not Detect); Human Metapneumovirus Not Detected (Not Detect); Human Rhinovirus/Enterovirus Not Detected (Not Detect); Influenza A Subtype 2009 H1 Not Detected (Not Detect); Influenza B Not Detected (Not Detect); Mycoplasma pneumoniae Not Detected (Not Detect); Parainfluenza Virus 1 Not Detected (Not Detect); Parainfluenza Virus 2 Not Detected (Not Detect); Parainfluenza Virus 3 Not Detected (Not Detect); Parainfluenza Virus 4 Not Detected (Not Detect); Respiratory Syncytial Virus Not Detected (Not Detect); SARS-CoV-2 Not Detected (Not Detect)
[2020-10-17 19:41] LABS: Potassium,Urine 77.9 mEq/L; Protein/Creatinine Ratio,Urine 0.48 mg/mg (0.00-0.20); Sodium, Urine 48.2 mEq/L
[2020-10-17] MEDS ORDERED: Piperacillin/Tazobactam 3.375 GM in 0.9 % Sodium Chloride Mini Bag 100 ML IVPB SCH (21:00)
[2020-10-17] MEDS: *HR* Heparin 5,000 UNIT/ML VIAL SQ SCH (22:40)
[2020-10-18] MEDS: Piperacillin/Tazobactam 3.375 GM in 0.9 % Sodium Chloride Mini Bag 100 ML IVPB SCH ×2 (00:14→11:46)
[2020-10-18] MEDS ORDERED: 0.9 % Sodium Chloride 1,000 ML IVC SCH (01:24)
[2020-10-18 01:28] LABS: Basophils % 0.1 %; Eosinophils % 0.1 %; Hemoglobin 9.4 g/dL (12.9-16.9); Lymphocytes % 3.7 %
[2020-10-18 01:30] LABS: Hematocrit 29.2 % (37.5-50.1); Immature Granulocytes % 0.7 % (0-4); Immature Platelets 1.9 % (1.1-6.1); Lymphocytes # 0.4 K/mcL (0.6-4.6); Mean Corpuscular HGB Conc 32.2 g/dL (31.6-35.5); Mean Corpuscular Hemoglobin 29.3 pg (28.0-33.3); Mean Platelet Volume 9.1 fL (9.4-12.4); Monocytes # 0.7 K/mcL (0.0-1.3); Monocytes % 6.1 %; Neutrophils # 9.6 K/mcL (1.6-8.9); Red Blood Count 3.21 M/mcL (4.19-5.50); Red Cell Distribution Width 13.3 % (11.5-14.5); Segmented Neutrophils % 89.3 %; White Blood Count 10.8 K/mcL (4.3-11.1)
[2020-10-18 01:35] LABS: Platelet Count 56 K/mcL (140-400)
[2020-10-18 01:57] LABS: Calcium 7.6 mg/dL (8.6-10.3); Magnesium 1.9 mg/dL (1.6-2.6); Phosphorous 4.4 mg/dL (2.7-4.5); Potassium 3.8 mEq/L (3.5-5.1); Troponin I 0.21 ng/mL (< 0.04)
[2020-10-18] MEDS: *HR* Heparin 5,000 UNIT/ML VIAL SQ SCH (05:37)
[2020-10-18] MEDS: Aspirin 81 MG TAB.CHEW PO SCH ×2 (11:14→11:39)
[2020-10-18] MEDS ORDERED: Leptospermum Honey Gel 44 ML TUBE TP SCH (14:15)
[2020-10-18] MEDS ORDERED: *HR* Heparin 5,000 UNIT/ML VIAL IVP ONE (14:24)
[2020-10-18] MEDS ORDERED: *HR* Heparin 5,000 UNIT/ML VIAL IVP PRN ×2 (14:24)
[2020-10-18] MEDS ORDERED: Perflutren Lipid Microsphere 1.3 ML in 0.9 % Sodium Chloride 8.7 ML IVP PRN (14:26)
[2020-10-18] MEDS ORDERED: Heparin 25,000UNIT/250ML 1/2NS 25,000 UNIT/250 ML IV.SOLN IVC SCH (14:30)
[2020-10-18] MEDS ORDERED: Morphine Sulfate Oral CONC 10 MG/0.5 ML ORAL.SYG SL PRN (15:06)
[2020-10-18] MEDS: Morphine Sulfate Oral CONC 10 MG/0.5 ML ORAL.SYG SL PRN (19:00)
[2020-10-19] MEDS: *HR* LORazepam Oral Conc 2 MG/ML SL PRN ×2 (01:42→16:04)
[2020-10-19] MEDS ORDERED: Scopolamine Patch 1.5 MG PATCH.TD72 TD PRN (10:17)
[2020-10-19] MEDS: Morphine Sulfate Oral CONC 10 MG/0.5 ML ORAL.SYG SL PRN ×3 (10:49→23:46)
[2020-10-19] MEDS: Haloperidol Lactate 5 MG/ML VIAL IVP PRN (21:39)
[2020-10-20] MEDS: *HR* LORazepam Oral Conc 2 MG/ML SL PRN ×2 (03:57→11:51)
[2020-10-20] MEDS: *HR* Heparin 5,000 UNIT/ML VIAL SQ SCH (07:31)
[2020-10-20] MEDS: 0.9 % Sodium Chloride 1,000 ML IVC SCH (07:32)
[2020-10-20] MEDS: Morphine Sulfate Oral CONC 10 MG/0.5 ML ORAL.SYG SL PRN (11:51)
[2020-10-20] MEDS: Haloperidol Lactate 5 MG/ML VIAL IVP PRN (14:59)
[2020-10-21] MEDS: *HR* LORazepam Oral Conc 2 MG/ML SL PRN (04:06)
[2020-10-21 11:05] VITALS: BP 118/69
[2020-10-21] MEDS: Morphine Sulfate Oral CONC 10 MG/0.5 ML ORAL.SYG SL PRN (14:00)
== END 2020-10-21 15:00 | disposition hospice, inpatient (51) | DRG 682 ==
LOC: 3ANU 13:01 → EMEROOARM 13:01 → SUATTDRO 20:50 → 3ANU 20:52 → 2ANU 10-18 18:08
PROVIDERS: ADMIT Internal Medicine; ATTEND Pharmacist

== ENCOUNTER 2020-10-21 13:44 | Inpatient (IN) ==
[2020-10-21] MEDS ORDERED: Ondansetron 4 MG/2 ML VIAL IVP PRN (13:47)
[2020-10-21] MEDS ORDERED: Haloperidol Oral Conc 10 MG/5 ML UDC PO PRN (13:47)
[2020-10-21] MEDS ORDERED: Atropine Sulfate 1% 40 DROP/2 ML BOTTLE SL PRN (13:47)
[2020-10-21] MEDS: *HR* LORazepam Oral Conc 2 MG/ML SL PRN (15:20)
[2020-10-21] MEDS: Morphine Sulfate Oral CONC 10 MG/0.5 ML ORAL.SYG PO PRN (15:20)
[2020-10-22] MEDS: Morphine Sulfate Oral CONC 10 MG/0.5 ML ORAL.SYG PO PRN ×2 (02:57→15:56)
[2020-10-22] MEDS: *HR* LORazepam Oral Conc 2 MG/ML SL PRN (04:20)
[2020-10-22] MEDS: Haloperidol Oral Conc 10 MG/5 ML UDC PO SCH ×4 (12:20→23:55)
[2020-10-23] MEDS: Haloperidol Oral Conc 10 MG/5 ML UDC PO SCH ×5 (04:14→18:37)
[2020-10-24] MEDS: Haloperidol Oral Conc 10 MG/5 ML UDC PO SCH ×4 (00:15→17:25)
[2020-10-24] MEDS: *HR* LORazepam Oral Conc 2 MG/ML SL PRN ×2 (08:34→15:08)
[2020-10-24] MEDS: Morphine Sulfate Oral CONC 10 MG/0.5 ML ORAL.SYG PO PRN (17:24)
[2020-10-24] MEDS ORDERED: Haloperidol Oral Conc 10 MG/5 ML UDC PO PRN (17:42)
[2020-10-25] MEDS: Haloperidol Oral Conc 10 MG/5 ML UDC PO SCH ×5 (08:10→23:32)
[2020-10-25] MEDS: Morphine Sulfate Oral CONC 10 MG/0.5 ML ORAL.SYG PO PRN (23:31)
[2020-10-26] MEDS: Morphine Sulfate Oral CONC 10 MG/0.5 ML ORAL.SYG PO PRN ×3 (05:22→17:58)
[2020-10-26] MEDS: Haloperidol Oral Conc 10 MG/5 ML UDC PO SCH ×4 (05:22→23:27)
[2020-10-26 19:46] VITALS: BP 61/37
== END 2020-10-27 02:00 | disposition expired | DRG 951 ==
LOC: 2ANU 15:04
PROVIDERS: ADMIT Internal Medicine Hospice and Palliative Medicine; ATTEND Internal Medicine Hospice and Palliative Medicine